=== PATIENT | male | born 1970 | race Caucasian/White ===

== ENCOUNTER → 2022-11-08 06:29 | Outpatient (CLI) | payer OTHER, SELFPAY ==
[2022-11-08 19:41] LABS: Basophils # 0.1 K/mm3 (0-0.2); Basophils % 0.9 % (0.1-2.0); Eosinophils # 0.3 K/mm3 (0.0-0.4); Eosinophils % 5.3 % (0.1-12.0); Hematocrit 50.1 % (42.0-52.0); Hemoglobin 16.5 g/dL (14.1-18.0); Lymphocytes # 2.2 K/mm3 (0.7-4.5); Lymphocytes % 36.1 % (10-50); Mean Corpuscular Hemoglobin 32.1 pg (27.0-31.2); Mean Corpuscular Volume 97.3 fl (80-94); Mean Platelet Volume 9.1 fl (7.4-10.4); Monocytes # 0.6 K/mm3 (0.1-1.0); Monocytes % 10.3 % (1.7-9.3); Neutrophils # 2.9 K/mm3 (1.8-7.8); Neutrophils % 47.4 % (37.0-80.0); Platelet Count 299 K/mm3 (142-424); Red Blood Count 5.15 M/mm3 (4.60-6.20); Red Cell Distribution Width 13.1 % (11.5-17.5)
[2022-11-08 19:44] LABS: Blood Urea Nitrogen 17 mg/dl (9-20); Calcium 8.3 mg/dl (8.4-10.2); Carbon Dioxide 30 mmol/L (22.0-30.0); Chloride 103 mmol/L (98-107); Chol/HDL Ratio 4.8 (1-3.5); Cholesterol 124 mg/dl (140-200); Estimated Glomerular Filt Rate 103 ml/min (>60); GFR (African American) 124 ML/MIN (>60); Glucose 114 mg/dl (74-100); HDL Cholesterol 26 mg/dl (40-60); Sodium 138 mmol/L (136-145); Triglycerides 109 mg/dl (30-150); Uric Acid 6.6 mg/dl (3.5-8.5); VLDL Cholesterol 22 mg/dL (0-40)
[2022-11-08 19:55] LABS: Direct LDL Cholesterol 73.09 mg/dL (100-129)
[2022-11-08 20:08] LABS: Microalbumin < 6.000 mg/L (0-16.7)
[2022-11-08 20:33] LABS: Creatinine,Urine Random 66 mg/dL (Not Estab.)
== END ==
PROVIDERS: PCP Family Medicine; Visit Provider Family Medicine
DX: I10 Essential (primary) hypertension (principal); Z00.00 Encounter for general adult medical examination without abnormal findings; K21.9 Gastro-esophageal reflux disease without esophagitis; E66.9 Obesity, unspecified; Z68.38 Body mass index [BMI] 38.0-38.9, adult
CPT/HCPCS: 80048; 80061; 82043; 82570; 84550; 85025

== ENCOUNTER → 2023-05-09 10:38 | Outpatient (CLI) | payer OTHER, SELFPAY ==
[2023-05-09 20:15] LABS: Alanine Aminotransferase 35 U/L (12-78); Albumin Level 3.9 g/dl (3.5-5.0); Albumin/Globulin Ratio 1.5 (1.1-1.8); Alkaline Phosphatase 79 U/L (38-126); Aspartate Amino Transferase 30 U/L (17-59); Bilirubin,Total 0.6 mg/dl (0.2-1.3); Blood Urea Nitrogen 17 mg/dl (9-20); Calcium 8.6 mg/dl (8.4-10.2); Carbon Dioxide 27 mmol/L (22.0-30.0); Chloride 105 mmol/L (98-107); Estimated Glomerular Filt Rate 79 ml/min (>60); GFR (African American) 96 ML/MIN (>60); Globulin 2.6 g/dL (1.3-3.2); Glucose 96 mg/dl (74-100); Sodium 138 mmol/L (136-145); Total Protein,Serum 6.5 g/dl (6.3-8.2)
[2023-05-09 20:45] LABS: Thyroid Stimulating Hormone 1.08 uIU/mL (0.465-4.68)
[2023-05-09 20:47] LABS: Hemoglobin A1C 5.4 % (4.0-6.0)
== END ==
PROVIDERS: PCP Nurse Practitioner; Visit Provider Nurse Practitioner
DX: I10 Essential (primary) hypertension (principal); K21.9 Gastro-esophageal reflux disease without esophagitis; Z12.5 Encounter for screening for malignant neoplasm of prostate; Z79.899 Other long term (current) drug therapy
CPT/HCPCS: 80053; 83036; 84443; G0103

== ENCOUNTER 2023-11-26 21:54 | Outpatient (CLI) | payer OTHER, SELFPAY ==
[2023-11-26 19:58] LABS: Alanine Aminotransferase 38 U/L (12-78); Albumin Level 3.5 g/dl (3.5-5.0); Albumin/Globulin Ratio 1.5 (1.1-1.8); Alkaline Phosphatase 58 U/L (38-126); Aspartate Amino Transferase 33 U/L (17-59); Bilirubin,Total 0.7 mg/dl (0.2-1.3); Blood Urea Nitrogen 15 mg/dl (9-20); Calcium 8.9 mg/dl (8.4-10.2); Carbon Dioxide 30 mmol/L (22.0-30.0); Chloride 106 mmol/L (98-107); Chol/HDL Ratio 6.7 (1-3.5); Cholesterol 114 mg/dl (140-200); Estimated Glomerular Filt Rate 102 ml/min (>60); GFR (African American) 123 ML/MIN (>60); Globulin 2.4 g/dL (1.3-3.2); Glucose 111 mg/dl (74-100); HDL Cholesterol 17 mg/dl (40-60); Sodium 138 mmol/L (136-145); Total Protein,Serum 5.9 g/dl (6.3-8.2); Triglycerides 149 mg/dl (30-150); VLDL Cholesterol 30 mg/dL (0-40)
[2023-11-26 20:01] LABS: Hemoglobin A1C 5.5 % (4.0-6.0)
[2023-11-26 20:09] LABS: Direct LDL Cholesterol 72.67 mg/dL (100-129)
== END 2023-11-26 23:59 ==
LOC: LAB.DROPOF 21:55
PROVIDERS: PCP Nurse Practitioner; Visit Provider Nurse Practitioner
DX: I10 Essential (primary) hypertension (principal); E66.9 Obesity, unspecified; Z68.36 Body mass index [BMI] 36.0-36.9, adult; Z79.899 Other long term (current) drug therapy
CPT/HCPCS: 80053; 80061; 83036

== ENCOUNTER 2024-06-09 12:15 | Outpatient (CLI) | payer OTHER, SELFPAY ==
[2024-06-09 18:30] LABS: Basophils % 0.7 % (0.1-2.0); Eosinophils # 0.2 K/mm3 (0.0-0.4); Eosinophils % 4.1 % (0.1-12.0); Hemoglobin 15.4 g/dL (14.1-18.0); Lymphocytes # 2.3 K/mm3 (0.7-4.5); Lymphocytes % 37.9 % (10-50); Mean Corpuscular HGB Conc 32.2 g/dL (31.8-35.4); Mean Corpuscular Hemoglobin 32.5 pg (27.0-31.2); Mean Corpuscular Volume 100.9 fl (80-94); Mean Platelet Volume 8.6 fl (7.4-10.4); Monocytes # 0.5 K/mm3 (0.1-1.0); Monocytes % 8.5 % (1.7-9.3); Neutrophils # 2.9 K/mm3 (1.8-7.8); Neutrophils % 48.7 % (37.0-80.0); Platelet Count 250 K/mm3 (142-424); Red Blood Count 4.76 M/mm3 (4.60-6.20); Red Cell Distribution Width 13.1 % (11.5-17.5)
[2024-06-09 18:57] LABS: Hemoglobin A1C 5.4 % (4.0-6.0)
[2024-06-09 19:23] LABS: Chloride 105 mmol/L (98-107)
[2024-06-09 19:24] LABS: Albumin Level 3.6 g/dl (3.5-5.0); Potassium 4.1 mmoL/L (3.5-5.1); Sodium 137 mmol/L (136-145)
[2024-06-09 19:26] LABS: Blood Urea Nitrogen 18 mg/dl (9-20); Estimated Glomerular Filt Rate 89 ml/min (>60); GFR (African American) 108 ML/MIN (>60)
[2024-06-09 19:27] LABS: Alanine Aminotransferase 23 U/L (12-78); Albumin/Globulin Ratio 1.3 (1.1-1.8); Alkaline Phosphatase 64 U/L (38-126); Anion Gap 6.1 mEq/L (5-15); Aspartate Amino Transferase 21 U/L (17-59); Bilirubin,Total 0.5 mg/dl (0.2-1.3); Calcium 8.7 mg/dl (8.4-10.2); Carbon Dioxide 30 mmol/L (22.0-30.0); Globulin 2.8 g/dL (1.3-3.2); Glucose 98 mg/dl (74-100); Total Protein,Serum 6.4 g/dl (6.3-8.2)
[2024-06-09 20:06] LABS: Creatinine,Urine Random 60 mg/dL (Not Estab.); Microalbumin < 6.000 mg/L (0-16.7)
[2024-06-09 20:26] LABS: Prostate Specific Ag Screen 1.3 ng/ml (0.0-4.0)
[2024-06-09 20:45] LABS: Vitamin B12 387 pg/mL (239-931)
== END 2024-06-09 23:59 | disposition home or self-care (01) ==
LOC: LAB.DROPOF 06-10 09:17
PROVIDERS: PCP Nurse Practitioner; Visit Provider Nurse Practitioner
DX: I10 Essential (primary) hypertension (principal); K21.9 Gastro-esophageal reflux disease without esophagitis; E66.9 Obesity, unspecified; Z68.35 Body mass index [BMI] 35.0-35.9, adult; Z12.5 Encounter for screening for malignant neoplasm of prostate
CPT/HCPCS: 80050; 80053; 82043; 82570; 82607; 83036; 84443; 85025; G0103

== ENCOUNTER 2024-08-19 10:40 | Outpatient (CLI) | payer OTHER, SELFPAY ==
[2024-08-19 19:04] LABS: Alanine Aminotransferase 23 U/L (12-78); Albumin Level 3.7 g/dl (3.5-5.0); Albumin/Globulin Ratio 1.4 (1.1-1.8); Alkaline Phosphatase 50 U/L (38-126); Anion Gap 16.1 mEq/L (5-15); Aspartate Amino Transferase 25 U/L (17-59); Bilirubin,Total 0.7 mg/dl (0.2-1.3); Blood Urea Nitrogen 14 mg/dl (9-20); Calcium 8.9 mg/dl (8.4-10.2); Carbon Dioxide 25 mmol/L (22.0-30.0); Chloride 102 mmol/L (98-107); Estimated Glomerular Filt Rate 89 ml/min (>60); GFR (African American) 108 ML/MIN (>60); Globulin 2.6 g/dL (1.3-3.2); Glucose 85 mg/dl (74-100); Potassium 4.1 mmoL/L (3.5-5.1); Sodium 139 mmol/L (136-145); Total Protein,Serum 6.3 g/dl (6.3-8.2)
== END 2024-08-19 23:59 | disposition home or self-care (01) ==
LOC: LAB.DROPOF 08-20 13:05
PROVIDERS: PCP Nurse Practitioner; Visit Provider Nurse Practitioner
DX: E66.9 Obesity, unspecified (principal); Z68.33 Body mass index [BMI] 33.0-33.9, adult
CPT/HCPCS: 80053

== ENCOUNTER 2025-08-17 16:25 | Outpatient (CLI) | payer SELFPAY ==
[2025-08-17 20:37] LABS: Hematocrit 44.4 % (42.0-52.0); Hemoglobin 15.5 g/dL (14.1-18.0); Immature Granulocytes % 0.3 %; Mean Corpuscular HGB Conc 34.9 g/dL (31.8-35.4); Mean Corpuscular Hemoglobin 32.8 pg (27.0-31.2); Mean Corpuscular Volume 93.9 fl (80-94); Nucleated Red Blood Cells % 0 %; Platelet Count 249 K/mm3 (142-424); Red Blood Count 4.73 M/mm3 (4.60-6.20); Red Cell Distribution Width-SD 41.5 fL; White Blood Count 7.5 K/mm3 (4.8-10.8)
[2025-08-18 03:55] LABS: Hemoglobin A1C 5.4 % (4.0-6.0)
[2025-08-18 04:40] LABS: Alanine Aminotransferase 23 U/L (12-78); Albumin Level 3.3 g/dl (3.5-5.0); Albumin/Globulin Ratio 1.0 (1.1-1.8); Alkaline Phosphatase 77 U/L (38-126); Anion Gap 13.0 mEq/L (5-15); Aspartate Amino Transferase 22 U/L (17-59); Bilirubin,Total 0.8 mg/dl (0.2-1.3); Blood Urea Nitrogen 24 mg/dl (9-20); Calcium 8.7 mg/dl (8.4-10.2); Carbon Dioxide 25 mmol/L (22.0-30.0); Chloride 103 mmol/L (98-107); Cholesterol 150 mg/dl (140-200); Creatinine,Serum 1.00 mg/dl (0.66-1.25); Estimated Glomerular Filt Rate 78 ml/min (>60); GFR (African American) 95 ML/MIN (>60); Globulin 3.2 g/dL (1.3-3.2); Glucose 105 mg/dl (74-100); HDL Cholesterol 42 mg/dl (40-60); Potassium 4.0 mmoL/L (3.5-5.1); Sodium 137 mmol/L (136-145); Total Protein,Serum 6.5 g/dl (6.3-8.2); Triglycerides 67 mg/dl (30-150)
[2025-08-18 05:12] LABS: Thyroid Stimulating Hormone 0.84 uIU/mL (0.465-4.68)
[2025-08-18 08:21] LABS: Hepatitis C Ab Qual. W/ RFX NEGATIVE (Negative)
--- OUTSIDE RECORDS SUMMARY | 2025-08-18 13:15 | XMS_ITS | Clinical Summary ---
Author Organization [facility] Address [address] [place] [phone] Phone Care Team Providers Care Knitter Machine Name Role Phone Unavailable Primary Care Provider Unavailabl e Allergies No known active allergies Medications pantoprazole (PROTONIX) 40 mg Oral Tablet, Delayed Release (E.C.)Indications :Gastroesophageal reflux disease with esophagitis, unspecified whether hemorrhage TAKE 1 TABLET BY MOUTH DAILY 30 Tablet 11 04/27/2022 Active hydroCHLOROthiazi de (HYDRODIURIL) 25 mg Oral TabletIndications :Essential hypertension TAKE 1 TABLET BY MOUTH DAILY 30 Tablet 5 09/19/2022 Active lisinopriL (PRINIVIL;ZESTRIL ) 5 mg Oral Tablet Take 5 mg by mouth daily. 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 MAIN OR; Service: General Medical devices from this surgery are in the Medical Devices section. Medical History Medical History Date Comments Heartburn Chronic kidney disease stones Hypertension Family History Medical History Relation Name Comments Coronary Art Dis Father Diabetes Father High Cholesterol Father Hypertension Father Diabetes Paternal Grandmother Anesth Problems Neg Hx Relation Name Status Comments Father Alive Paternal Grandfather Paternal Grandmother Social History Tobacco Use Types Packs/Day Years Used Date Smoking Tobacco: Never Smokeless Tobacco: Never Alcohol Use Standard Drinks/Week Comments No 0 (1 standard drink = 0.6 oz pur e alcohol) Overall Financial Resource Strain (CARDIA) Answe r Date Recorded How hard is it for you to pa y for the very basics like food, housing, medical care, and heating? Not hard at all 05/17/2021 PHQ-2 Answer Date Recorded PHQ-2 Score 0 06/06/2019 [facility] - Occupational Stress Questionnaire Answer Date Recorded Do you feel stress - tense, restless, nervous, or anxious, or unable to sleep at night because your mind is troubled all the time - these days? Not at all 05/17/2021 Exercise Vital Sign Answer Date Recorde d On average, how many days pe r week do you engage in moderate to strenuous exercise (like a brisk walk)? 5 days 05/17/2021 On average, how many minutes do you engage in exercise at this level? 30 min 05/17/2021 Hunger Vital Sign Answer Date Recorded Within the past 12 months, y ou worried that your food would run out before you got the money to buy more. Never true 05/17/20 21 Within the past 12 months, t he food you bought just didn't last and you didn't have money to get more. Never true 05/17/2021 PRAPARE - Transportation Answer Date Re corded In the past 12 months, has l ack of transportation kept you from medical appointments or from getting medications? No 04/22 In the past 12 months, has l ack of transportation kept you from meetings, work, or from getting things needed for daily living? No 05/17/2021 Sexually Active Control Partners Comments Yes Post-menopausal Female Sex and Gender Information Value Date Recorded Sex Assigned at Not on file Legal Sex Male 10:19 PM EDT Gender Identity Not on file Sexual Orientation Not on file Last Filed Vital Signs Vital Sign Reading Time Taken Comments Blood Pressure 122/89 12/21/2023 9:06 AM EST Pulse 60 12/21/2023 9:06 AM EST Temperature 36.4 C (97.5 F) 12/21/2023 8:44 AM EST Respiratory Rate 18 12/21/2023 9:06 AM EST Oxygen Saturation 99% 12/21/2023 9:06 AM EST Inhaled Oxygen Concentration - - Weight 104.1 kg (229 lb 8 oz) 12/21/2023 7:32 AM EST Height 170.2 cm (5' 7 ) 12/21/2023 7:32 AM EST Body Mass Index 35.94 12/21/2023 7:32 AM EST Plan of Treatment Health Maintenance Due Date Last Done Comments Annual Wellness Exam 1975 Hepatitis B Vaccine (1 of 3 - 19+ 3-dose series) 1991 Cologuard 2017 FIT 2017 Sigmoidoscopy 2017 Virtual Colonography 2017 Pneumococcal Vaccine 50+ (1 of 1 - PCV) 2022 Zoster (1 of 2) 2022 COVID-19 Vaccine (1 - 2024-2 6 season) 2025 Influenza Vaccine (#1) 2025 7 (Declined), 09/30/2015 (Declined) DTaP/TDaP/Td (2 - Td or Tdap) 11/10/2026 11/10/2016 Colon Cancer Screening 12/20/2028 Colonoscopy 12/20/2028 12/21/2023 Meningococcal B Vaccine Aged Out No l onger eligible based on patient's age to complete this topic Goals Goal Patient Goal Type Associated Problems Recent Progress Patient-Stated? Author Maintain a healthy diet, exercise regularly and maintain an ideal body weight General No Yana Jensen CCMA Medical Devices Implanted Type Area Melter Operator Device Identifier Shelf Expiration Date Model / Serial / Lot Patch Bard Ventralight St Ps Tm 4.5 (11.4cm) [place] - [id number] Implanted:Qty: 1 on 10/09/2019 by Holland Broussard MD at [facility] N/A: Abdomen CR BARD:DAVOL 05/18/2021 [id number] / / [id number] Procedures Procedure Name Priority Date/Time Associated Diagnosis Comments COLONOSCOPY Routine 12/21/2023 8:42 AM EST Screening for colon cancer from Last 3 Months or Most Recently Relevant to Health Maintenance Results * COLONOSCOPY (12/21/2023 8:42 AM EST) Anatomical Region Laterality Modality Endoscopy Narrative 12/21/2023 8:44 AM EST Table formatting from the original result was not included. Findings One sessile, adenomatous-appearing polyp measuring 5-9 mm in the descending colon; performed cold snare with complete en bloc removal and retrieved specimen Multiple medium, scattered diverticula of mild severity with no inflammation in the descending colon and sigmoid colon Recommendation Await pathology results - Repeat colonoscopy likely in 5 years Indication Screening for colon cancer Staff Staff Role Froilan Antunez MD Performing Provider Anita Kapadia RN French Folder Samantha Wright MD Anesthesiologist Nilesh Gonsalez CRNA FLATWORK CATCHER Medications See Anesthesia Record. Preprocedure A history and physical has been performed, and patient medication allergies have been reviewed. The patient's tolerance of previous anesthesia has been reviewed. The risks and benefits of the procedure and the sedation options and risks were discussed with the patient. All questions were answered and informed consent obtained. ASA 2 - Patient with mild systemic disease Details of the Procedure The patient underwent monitored anesthesia care, which was administered by an anesthesia professional. The patient's blood pressure, heart rate, level of consciousness, oxygen, respirations, ECG and ETCO2 were monitored throughout the procedure. A digital rectal exam was performed. The scope was introduced through the anus and advanced to the cecum. Retroflexion was performed in the rectum. Bowel prep was adequate. The patient's estimated blood loss was minimal (<5 mL). The procedure was not difficult. The patient tolerated the procedure well. There were no apparent adverse events. Patient provided education and educated on specific discharge instructions. Patient educated on medications given during the procedure and new medications for discharge. Patient verbalizes understanding of discharge education. Patient stable and awaiting transport for discharge. Events Procedure Events Event Event Time ENDO SCOPE IN TIME 12/21/2023 8:29 AM ENDO CECUM REACHED 12/21/2023 8:33 AM ENDO SCOPE OUT TIME 12/21/2023 8:38 AM Specimens ID Type Source Tests Collected by Time 1 : Descending colon polyp via cold snare Tissue Large Intestine, Left/Descending Colon PATHOLOGY TISSUE REQUEST Froilan Antunez MD 12/21/2023 0836 Anesthesia Event Time In Patient In - Proc. Room 08:18 AM Patient Out - Proc. Room 08:42 AM Froilan Antunez MD ENDOSCOPY PROCEDURE ORDERABL ES Final Result from Last 3 Months or Most Recently Relevant to Health Maintenance Insurance [employer] OPEN ACCESS PLUS
[2025-08-19 05:09] LABS: Hepatitis B Surface Antigen Negative (Negative)
== END 2025-08-17 23:59 | disposition home or self-care (01) ==
LOC: LAB.DROPOF 08-18 12:47
PROVIDERS: PCP Nurse Practitioner; Visit Provider Nurse Practitioner
DX: I10 Essential (primary) hypertension (principal); E66.9 Obesity, unspecified; R73.01 Impaired fasting glucose; Z12.5 Encounter for screening for malignant neoplasm of prostate; Z11.59 Encounter for screening for other viral diseases
CPT/HCPCS: 80053; 80061; 82043; 82570; 83036; 84443; 85025; 86803; 87340; 87389; G0103

== ENCOUNTER 2025-08-26 07:06 | Outpatient (CLI) | payer SELFPAY ==
--- OUTSIDE RECORDS SUMMARY | 2025-08-26 07:08 | XMS_ITS | Clinical Summary ---
Author Organization 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/2016 Immunizations Immunization Administration Dates Next Due Tdap 11/10/2016 Surgical History Surgery Date Site/Laterality Comments KIDNEY STONE SURGERY Oct 2015 HERNIA REPAIR 7 yrs old VENTRAL HERNIA REPAIR 10/09/2019 N/A Robotic assisted laparoscopic ventral hernia repair with mesh; Surgeon: Holland Broussard MD; [facility]; Service: General Medical devices from [...] Answer Date Recorded PHQ-2 Score 0 06/06/2019 [facility] - Occupational Stress [...] Jensen CCMA Medical Devices Implanted Type Area Castings Trimmer Device Identifier Shelf Expiration Date Model / Serial / Lot Patch Bard Ventralight St Ps Tm 4.5 (11.4cm) [place] - [id number] Implanted:Qty: 1 on 10/09/2019 by Holland Broussard MD at [facility] N/A: Abdomen CR BARD:DAVOL 05/18/2021 [id number] / / [id number] Procedures Procedure Name Priority Date/Time Associated Diagnosis [...] Antunez MD Performing Provider Anita Kapadia RN Nut Process Helper Samantha Wright MD Anesthesiologist Nilesh Gonsalez CRNA MIXER WHIPPED TOPPING Medications See Anesthesia Record. Preprocedure A history [...] Most Recently Relevant to Health Maintenance Insurance [employer] OPEN ACCESS PLUS
--- NOTE | 2025-08-26 07:30 | CT_ITS ---
APPROVED REPORT Supervisor Stave Finishing: CLINICAL INDICATION Coronary risk evaluation and stratification TECHNIQUE Image Acquisition: A 128 slice MDCT scanner ([employer] View) was used for data acquisition. A noncontrast coronary calcium scan was performed. A CT attenuation threshold of 130 Hounsfield units (HU) was used for the detection of calcium in contiguous voxels of 1 sq mm in area to be counted as individual lesions. A tube voltage of 120 KVp was used. The patient received no medications prior to the coronary calcium CT. Image Reconstruction Transaxial images were reconstructed at 0.67 mm slide thickness. Data was reviewed interactively on an advanced workstation capable of 2 and 3-dimensional displays in all conventional reconstruction formats, including multiplanar reformations, maximum intensity projections, curved multiplanar reformations, and volume rendered reconstructions. When applicable, selected routine images describing the relevant coronary anatomy and pathology were saved and sent to PACS. Complications None Technical Quality Overall image quality was good. Total DLP (Dose-Length Product) is 143.9 mGy-cm. The reported value represents the total of one or more individual components during the CT acquisition of this date and at this time, and as such, the same value may appear in more than one CT report depending on the interpreting/reporting physicians. COMPARISON None FINDINGS CT Coronary Calcium Scoring LMA (Left Main Artery) = 0 LAD (Left Anterior Descending) = 0 LCX (Left Coronary Circumflex) = 8 RCA (Right Coronary Artery) = 0 Total Calcium Score = 8 using the AJ-130 method. There is mild calcification in the aortic valve. IMPRESSION -Coronary artery calcification is present. -Total Calcium Score (Agatston Score) = 8 using the AJ-130 method. -The observed calcium score of 8 is at 61st percentile for subjects of the same age, sex, and race/ethnicity. The interpretation of the calcium heart score is based on the following continuum*: 0 = no calcified plaque detected (risk of coronary artery disease is very low ??? less than 5%) 1-10 = calcium detected in extremely minimal levels (risk of coronary diseases is still low ??? less than 10%) 11-100 = mild levels of plaque detected with certainty (mild or minimal narrowing of heart arteries is likely) 101-400 = definite,at least moderate levels of plaque detected (relatively high risk of a heart attack within 3-5 years) >401-999 = extensive levels of plaque detected (high risk of heart attack, high levels of vascular disease are present, high likelihood of at least one significant coronary narrowing) *The calcium heart score quantifies the burden of coronary calcification/plaque in the coronary arteries. The calcium heart score does not evaluate the presence or the burden of non-calcified (i.e. soft) plaque. The coronary and cardiac findings of this Coronary Calcium CT were reviewed, reported, and signed by Spenser Amos MD (Screen Maker). Conclusion Electronically signed by : Rachel Amos MD 08/26/2025 14:33:39
== END 2025-08-26 23:59 | disposition home or self-care (01) ==
PROVIDERS: PCP Nurse Practitioner; Visit Provider Nurse Practitioner
DX: I25.10 Atherosclerotic heart disease of native coronary artery without angina pectoris (principal); I10 Essential (primary) hypertension; H53.9 Unspecified visual disturbance; Z82.49 Family history of ischemic heart disease and other diseases of the circulatory system
CPT/HCPCS: 75571

== ENCOUNTER 2025-09-10 10:11 | Outpatient (CLI) | payer OTHER, SELFPAY ==
--- NOTE | 2025-09-10 10:30 | CA_ITS ---
APPROVED REPORT Exam: Exercise Treadmill Technologist: Neelam Shelley Ht: 5 ft 7 in Wt: 224 lbs BSA: 2.12 m2 HR: 66 bpm BP: 151/93 mmHg Rhythm: Sinus rhythm Indications: Family hx, coronary artery calcifaction Medical History Cardiac Risk Factors: HTN, FHX of CAD Stress Test Details HR Resting HR: 66 bpm Max Heart Rate (APMHR): 168.731654 bpm Target HR (85% APMHR): 142.794648 bpm Recovery HR: 130 bpm BP Resting BP: 151.0/93.0 mmHg Recovery BP: 185.0/100.0 mmHg ECG Resting ECG: Sinus rhythm Clinical Reason for Termination: Leg pain/Claudication Exercise duration: 10:06 min Exercise capacity: 12.1 METs Stress ECG Conclusion During fabienne protocol pt walked 10:06 minutes, requested to stop due to leg fatigue. No symptoms noted. PACs noted. Less than 0.5mm upsloping ST segment changes. 97% of PM Electronically signed by : Rachel Amos MD 09/10/2025 15:18:46
--- OUTSIDE RECORDS SUMMARY | 2025-09-10 10:55 | XMS_ITS | Clinical Summary ---
Author Organization 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/2016 Immunizations Immunization Administration Dates Next Due Tdap 11/10/2016 Surgical History Surgery Date Site/Laterality Comments KIDNEY STONE SURGERY Oct 2015 HERNIA REPAIR 7 yrs old VENTRAL HERNIA REPAIR 10/09/2019 N/A Robotic assisted laparoscopic ventral hernia repair with mesh; Surgeon: Holland Broussard MD; Location: [facility] MA[facility] OR; Service: General [...] Answer Date Recorded PHQ-2 Score 0 06/06/2019 [facility] - Occupational [...] Jensen CCMA Medical Devices Implanted Type Area Dyeing Machine Tender Device Identifier Shelf Expiration Date Model / Serial / Lot Patch Bard Ventralight St Ps Tm 4.5 (11.4cm) [place] - [id number] Implanted:Qty: 1 on 10/09/2019 by Holland Broussard MD at [facility] N/A: Abdomen CR BARD:DAVOL 05/18/2021 [id number] / / [id number] Procedures Procedure Name Priority Date/Time Associated Diagnosis [...] Antunez MD Performing Provider Anita Kapadia RN Stamper Blocker Samantha Wright MD Anesthesiologist Nilesh Gonsalez CRNA DIRECTOR PART Medications See Anesthesia Record. Preprocedure A history [...] Most Recently Relevant to Health Maintenance Insurance [employer] OPEN ACCESS PLUS
[2025-09-10 11:05] VITALS: BP 151/93; BP 185/100; PULSE 66; RESP 16
== END 2025-09-10 23:59 | disposition home or self-care (01) ==
LOC: RT 10:12
PROVIDERS: PCP Nurse Practitioner; Visit Provider Physician Assistant
DX: I49.1 Atrial premature depolarization (principal); I25.10 Atherosclerotic heart disease of native coronary artery without angina pectoris; I10 Essential (primary) hypertension; Z82.49 Family history of ischemic heart disease and other diseases of the circulatory system
CPT/HCPCS: 93017; 93018